=== PATIENT | male | born 1980 | race Caucasian/White ===

== ENCOUNTER 2019-12-21 07:28 | Emergency (ER) | payer BC ==
[~2019-12-21] VITALS: Ht 185.4 cm; Wt 73.5 kg
--- NOTE | 2019-12-21 07:34 | NUR ---
Dr Larkin at the bedside for MSE.
[2019-12-21] MEDS ORDERED: LAMO200T2 PO (07:38)
[2019-12-21] MEDS ORDERED: MORPHINE SULFATE 4 MG/1 ML DISP.SYRIN IV ONE ×2 (07:45→09:15)
[2019-12-21] MEDS ORDERED: ONDANSETRON 4 MG/2 ML VIAL IV ONE ×2 (07:45→09:15)
[2019-12-21] MEDS ORDERED: METHOCARBAMOL 500 MG TABLET ONE (07:59)
[2019-12-21] MEDS ORDERED: ONDANSETRON 4 MG/2 ML VIAL ONE ×2 (08:00→09:07)
[2019-12-21] MEDS ORDERED: METHOCARBAMOL 500 MG TABLET PO ONE (08:00)
[2019-12-21] MEDS ORDERED: MORPHINE SULFATE 4 MG/1 ML DISP.SYRIN ONE ×2 (08:00→09:07)
[2019-12-21] MEDS ORDERED: IV NORMAL SALINE 250 ML IV ONE (08:28)
[2019-12-21] MEDS ORDERED: IOHEXOL 300MG/ML 100 ML INFUS..BTL ONE (08:28)
[2019-12-21] MEDS ORDERED: SWABABLE VALVE TRANSFER SET EA MC ONE (08:28)
[2019-12-21 09:45] VITALS: BP 112/70
--- NOTE | 2019-12-21 09:47 | NUR ---
IV removed. Catheter intact and site benign. Pressure and 4x4 gauze applied to site. No bleeding noted.
--- NOTE | 2019-12-21 09:50 | NUR ---
Patient discharged to home in stable condition. Written and verbal after care instructions given. Patient verbalizes understanding of instructions. Stressed follow up or return to ER for worsening s/s.
== END 2019-12-21 09:50 | disposition home or self-care (01) ==
LOC: ER 07:28
DX: S27.329A Contusion of lung, unspecified, initial encounter (principal); S39.91XA Unspecified injury of abdomen, initial encounter; V00.121A Fall from non-in-line roller-skates, initial encounter; Y93.51 Activity, roller skating (inline) and skateboarding; Y92.89 Other specified places as the place of occurrence of the external cause; M54.9 Dorsalgia, unspecified
CPT/HCPCS: 71260; 74177; 96374; 96375; 96376; 99285; J2270 ×2; J2405 ×2; Q9967; A4663; J7050